=== PATIENT | male | born 1965 | race Caucasian/White ===

== ENCOUNTER 2020-02-10 23:00 | Emergency (ER) | payer SELFPAY ==
[2020-02-10] MEDS ORDERED: HYDROmorphone 2 MG/ML VIAL IV ONE (23:30)
[2020-02-10] MEDS ORDERED: ONDANSETRON PF 4 MG/2 ML VIAL. IVP ONE (23:30)
[2020-02-10 23:38] LABS: BASO # 0.3 x10^3/uL (0.0-0.2); BASO % 2 % (0-3); EOS # 0.1 x10^3/uL (0.0-0.7); EOS % 1 % (0-3); HEMATOCRIT 36.8 % (39.0-53.0); HEMOGLOBIN 11.1 g/dL (13.0-17.5); LYMPH # 2.6 x10^3/uL (1.0-4.8); LYMPH % 16 % (24-48); MEAN CORPUSCULAR HEMOGLOBIN 20 pg (25-35); MEAN CORPUSCULAR HGB CONC 30 g/dL (31-37); MEAN CORPUSCULAR VOLUME 65 fL (79-100); MONO # 1.2 x10^3/uL (0.0-1.1); MONO % 7 % (0-9); NEUT # 11.9 x10^3/uL (1.8-7.7); NEUT % 74 % (31-73); PLATELET COUNT 330 x10^3/uL (140-400); RED BLOOD COUNT 5.65 x10^6/uL (4.30-5.70); RED CELL DISTRIBUTION WIDTH 29.6 % (11.5-14.5); WHITE BLOOD COUNT 16.1 x10^3/uL (4.0-11.0)
[2020-02-10 23:47] LABS: CALCIUM 9.1 mg/dL (8.5-10.1); GFR 78.2; POTASSIUM 4.4 mmol/L (3.5-5.1)
[2020-02-10 23:48] LABS: PROTHROMBIN TIME PATIENT 12.8 SEC (11.7-14.0)
[2020-02-10 23:53] LABS: ALBUMIN 3.1 g/dL (3.4-5.0); ALBUMIN/GLOBULIN RATIO 0.9 (1.0-1.7); TOTAL BILIRUBIN 0.3 mg/dL (0.2-1.0); TOTAL PROTEIN 6.7 g/dL (6.4-8.2)
[2020-02-11] MEDS ORDERED: MORPHINE SULFATE 4 MG/ML VIAL. IV ONE (00:15)
[2020-02-11 00:21] LABS: ANISOCYTOSIS MARKED; HYPOCHROMIA MARKED; MICROCYTOSIS MARKED; PLT ESTIMATE ADEQUATE (ADEQUATE); POLYCHROMASIA SLIGHT; TARGET CELLS FEW
[2020-02-11 00:22] LABS: OVALOCYTES OCC
--- NOTE | 2020-02-11 00:22 | RAD ---
EXAM: CT Chest, Abdomen and Pelvis without IV contrast CLINICAL HISTORY: trauma head injury, fall COMPARISON: None. TECHNIQUE: Helical CT of the chest, abdomen and pelvis was performed without intravenous contrast. Axial, coronal and sagittal reformatted images were generated. ---PQRS compliance statement - One or more of the following individualized dose reduction techniques were utilized for this study: 1. Automated exposure control 2. Adjustment of the mA and/or kV according to patient size 3. Use of iterative reconstruction technique--- FINDINGS: Lack of intravenous contrast limits evaluation of solid organs, vasculature, and lymph nodes. Chest: Heart is not enlarged. Coronary artery, aortic calcifications are seen. Changes of CABG are noted. No pleural effusion or pneumothorax. No axillary lymphadenopathy. No mediastinal or hilar lymphadenopathy. No suspicious lung nodule or mass is seen. Minimal dependent opacities in the right and left lower lobes likely atelectasis. Mild bilateral gynecomastia. Abdomen and Pelvis: No focal liver lesion. Cholecystectomy clips are seen. No biliary duct dilatation. Pancreas is unremarkable. Spleen is normal in appearance. Mild thickening of the left adrenal gland. Right adrenal gland is unremarkable. Punctate nonobstructing right interpolar renal calculus. No focal renal lesion. No hydronephrosis. No hydroureter. Bladder is grossly unremarkable. Bilateral iliac stents are seen. Moderate colonic stool content is seen. No bowel obstruction. The appendix is not seen, likely from prior appendectomy. Dense barium contrast is seen within the sigmoid colon and rectum. This results an associated streak artifact limiting evaluation of the pelvis. Small fat-containing periumbilical hernia is seen. No abdominal or pelvic ascites. No abdominal or pelvic lymphadenopathy. Bones: Changes of prior median sternotomy are seen with cortication along the margin suggesting nonunion/delayed union. No definite aggressive osseous lesion is seen. IMPRESSION: 1. No definite evidence for acute thoracic, abdominal or pelvic trauma. 2. No evidence for acute fracture is seen. 3. Moderate colonic stool content. No bowel obstruction. 4. There has been a cholecystectomy. 5. Mild left adrenal gland thickening is seen without dominant mass. CLINICAL HISTORY: Trauma COMPARISON: None available. TECHNIQUE: Helical CT of the thoracic spine was performed and axial, coronal and sagittal reformatted images were generated. PQRS compliance statement - One or more of the following individualized dose reduction techniques were utilized for this study: 1. Automated exposure control 2. Adjustment of the mA and/or kV according to patient size 3. Use of iterative reconstruction technique FINDINGS: Vertebral body heights are preserved. Diffusely decreased bone mineral density. No significant spondylolisthesis. Disc heights are grossly preserved. No thoracic spine acute fracture is seen. IMPRESSION: No acute fracture or subluxation. Electronically signed by: Christiano Ruiz MD (02/11/2020 12:19 AM) A[facility]ER
--- NOTE | 2020-02-11 00:24 | RAD ---
EXAM: CT HEAD WITHOUT IV CONTRAST CLINICAL HISTORY: Trauma, head injury COMPARISON: None. TECHNIQUE: Routine CT of the head without contrast. Soft tissues and bone windows were reviewed. PQRS compliance statement - One or more of the following individualized dose reduction techniques were utilized for this study: 1. Automated exposure control 2. Adjustment of the mA and/or kV according to patient size 3. Use of iterative reconstruction technique FINDINGS: There is no evidence of hemorrhage, mass or extra-axial fluid collection. Gr-white differentiation is maintained with no evidence of edema. There is no mass effect or shift of the intracranial structures. The ventricles, basilar cisterns and cortical sulci are normal in size and configuration for the patients stated age. The cerebellum and brainstem are unremarkable. The calvarium demonstrates no evidence of fracture or focal lesion. There is normal aeration of the visualized paranasal sinuses and mastoid air cells. The visualized portions of the orbits are normal. Atherosclerotic calcifications of the intracranial internal carotid and vertebral arteries is seen. IMPRESSION: No evidence for acute intracranial process. EXAM: CT CERVICAL SPINE WITHOUT IV CONTRAST CLINICAL HISTORY: Trauma, neck pain COMPARISON: None available. TECHNIQUE: Helical CT of the cervical spine was performed. Axial, coronal and sagittal reformatted images were also performed. PQRS compliance statement - One or more of the following individualized dose reduction techniques were utilized for this study: 1. Automated exposure control 2. Adjustment of the mA and/or kV according to patient size 3. Use of iterative reconstruction technique FINDINGS: Vertebral body heights are preserved. Mild C6-7, C7-T1 disc height loss. No significant spondylolisthesis. No definite acute fracture is seen. IMPRESSION: 1. No evidence for acute fracture or subluxation. 2. Multilevel degenerative changes, most prominent at C6-7 and C7-T1 Electronically signed by: Christiano Ruiz MD (02/11/2020 12:21 AM) A[facility]ER
--- NOTE | 2020-02-11 00:25 | RAD ---
EXAM: CT lumbar spine without IV contrast CLINICAL HISTORY:Trauma, back pain COMPARISON: None available. TECHNIQUE: Helical CT was performed through the lumbar spine. Axial, coronal and sagittal reformatted images were generated. PQRS compliance statement - One or more of the following individualized dose reduction techniques were utilized for this study: 1. Automated exposure control 2. Adjustment of the mA and/or kV according to patient size 3. Use of iterative reconstruction technique FINDINGS: Vertebral body heights are preserved. Disc heights are preserved. No spondylolisthesis. Straightening of the normal lumbar lordosis. No aggressive osseous lesion. No acute fracture. IMPRESSION: No evidence for acute fracture or subluxation. Electronically signed by: Christiano Ruiz MD (02/11/2020 12:22 AM) A[facility]ER
[2020-02-11] MEDS ORDERED: HYDROmorphone 2 MG/ML VIAL IV ONE ×2 (00:30→01:30)
--- NOTE | 2020-02-11 01:08 | RAD ---
EXAM: CT facial bones without contrast CLINICAL HISTORY: Facial trauma COMPARISON: None available. TECHNIQUE: Helical CT of the face/paranasal sinuses was acquired and axial, coronal and sagittal reformatted images were generated. ---PQRS compliance statement - One or more of the following individualized dose reduction techniques were utilized for this study: 1. Automated exposure control 2. Adjustment of the mA and/or kV according to patient size 3. Use of iterative reconstruction technique--- FINDINGS: No definite fracture is noted of the facial bones. The visualized paranasal sinuses are well-aerated. No evidence of air-fluid levels. The mastoids are unremarkable. The globes, extraocular muscles, optic nerves and retrobulbar fat are normal. Multifocal dental disease is seen. There is anterior subluxation of the left TMJ with appropriate articulation of the right TMJ. Unilateral dislocation/subluxation is suspected. Atherosclerotic calcifications of the intracranial internal carotid and vertebral arteries is seen. Subcutaneous soft tissue swelling overlying the frontal region bilaterally. IMPRESSION: No evidence for acute fracture. There is anterior subluxation of the left TMJ with appropriate articulation of the right TMJ. Unilateral dislocation/subluxation is suspected and can be correlated with clinical examination. Multifocal dental disease with numerous dental caries. Electronically signed by: Christiano Ruiz MD (02/11/2020 1:04 AM) A[facility]ANDER
--- NOTE | 2020-02-11 01:11 | RAD ---
EXAM: 2 views right humerus 2 views right forearm DATE: 02/10/2020 11:06 PM INDICATION: Trauma, fall, right arm injury, pain COMPARISON: No Prior FINDINGS: No evidence for acute fracture or dislocation. Diffuse soft tissue swelling about the distal right upper arm and forearm. IMPRESSION: No evidence of acute fracture or dislocation. Electronically signed by: Christiano Ruiz MD (02/11/2020 1:08 AM) A[facility]ER
[2020-02-11] MEDS ORDERED: MIDAZOLAM HCL/PF 5 MG/5 ML VIAL. ONE (01:19)
[2020-02-11] MEDS ORDERED: ACETAMINOPHEN 500 MG TABLET PO ONE (02:45)
--- NOTE | 2020-02-11 02:48 | RAD ---
EXAM: AP and bilateral lateral and oblique views of the mandible. DATE: 02/11/2020 1:58 AM CLINICAL INDICATION: COMPARISON: None. FINDINGS: There is anterior dislocation of the left TMJ joint, likely stable in appearance to prior CT facial bones. No erosive changes are identified. There is normal morphology of the glenoid fossa and the condyles. There is no acute fracture. Paranasal sinuses are aerated without fluid levels. IMPRESSION: 1. Anterior dislocation of the left TMJ joint is again seen. 2. There is appropriate articulation of the right TMJ joint with the glenoid fossa. Electronically signed by: Christiano Ruiz MD (02/11/2020 2:46 AM) ALEXANDER
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
== END 2020-02-11 02:48 | disposition left against medical advice (07) ==
LOC: ER 23:00
DX: S03.02XA Dislocation of jaw, left side, initial encounter (principal); R10.31 Right lower quadrant pain; R51 Headache; V80.010A Animal-rider injured by fall from or being thrown from horse in noncollision accident, initial encounter; Y93.89 Activity, other specified; Y92.89 Other specified places as the place of occurrence of the external cause; Y99.8 Other external cause status
CPT/HCPCS: 36415; 70150; 70450; 70486; 71250; 72125; 72128; 72131; 73060; 73090; 74176; 80053; 83690; 85025; 85610; 96374; 96375; 96376; 99285; J1170; J2405